=== PATIENT | male | born 1990 | race African-American/Black ===

== ENCOUNTER 2022-04-03 06:48 | Day surgery (SDC) | payer BC ==
[2022-03-29 10:30] VITALS: BP 125/73
[2022-03-29 11:05] LABS: BASOPHILS % (AUTO) 0.2 % (0.0-5.0); EOSINOPHILS % (AUTO) 1.8 % (0.0-8.0); HEMATOCRIT 46.9 % (42-54); MEAN CORPUSCULAR HEMOGLOBIN 32.9 pg (27.0-33.0); MEAN CORPUSCULAR HGB CONC 35.4 g/dL (32.0-36.0); MEAN CORPUSCULAR VOLUME 92.9 fL (79-99); MONOCYTES % (AUTO) 6.3 % (3.0-13.0); NEUTROPHILS % (AUTO) 60.4 % (40.0-77.0); PLATELET COUNT (AUTO) 254 K/uL (130-400); RED BLOOD CELL COUNT(AUTO) 5.05 MIL/uL (4.50-6.20); WHITE BLOOD COUNT (AUTO) 6.1 K/uL (4.8-10.8)
[2022-03-29 11:11] LABS: APPEARANCE,URINE CLEAR (CLEAR); BILIRUBIN,URINE NEGATIVE (NEGATIVE); COLOR,URINE LIGHT-YELLOW (YELLOW); GLUCOSE, URINE (UA) NEGATIVE (NEGATIVE); KETONES,URINE NEGATIVE (NEGATIVE); LEUKOCYTE ESTERASE ,URINE NEGATIVE Leu/uL (NEGATIVE); NITRATE,URINE NEGATIVE (NEGATIVE); OCCULT BLOOD,URINE NEGATIVE (NEGATIVE); PH,URINE 5.5 (5.0-8.0); PROTEIN,URINE NEGATIVE (NEGATIVE); UROBILINOGEN,URINE 0.2 mg/dL (0.2-1.0)
[2022-03-29 11:17] LABS: CREATININE 1.2 mg/dL (0.5-1.5); POTASSIUM 3.9 mmol/L (3.5-5.1); TOTAL PROTEIN, SERUM 7.6 g/dL (6.0-8.3)
[~2022-04-03] VITALS: Ht 172.7 cm; Wt 89.3 kg
[2022-04-03] VITALS (12 sets, daily range): BP systolic 94–142; BP diastolic 49–82
[~2022-04-03 06:48] MED LIST: HYDR25TA PO; LOSA50TA64 PO
[2022-04-03] MEDS: CEFAZOLIN SODIUM 1 GM VIAL IVP SCH ×2 (07:30→10:05)
[2022-04-03] MEDS ORDERED: LACTATED RINGERS 1000ML 1,000 ML IV ONE (07:38)
[2022-04-03] MEDS ORDERED: LIDOCAINE PF 100MG/5ML (2%) SYRINGE 5ML ONE (09:43)
[2022-04-03] MEDS ORDERED: ONDANSETRON 4MG INJ ONE (09:43)
[2022-04-03] MEDS ORDERED: FENTANYL CITRATE PF 50 MCG/1 ML 5ML AMP IV ONE (09:43)
[2022-04-03] MEDS ORDERED: ROCURONIUM 10MG/1ML SYR 10 MG/ML ML ONE (09:43)
[2022-04-03] MEDS ORDERED: PROPOFOL 10 MG/ML 20ML VIAL IV ONE ×2 (09:43→09:54)
[2022-04-03] MEDS ORDERED: MIDAZOLAM HCL 1 MG/ML 2ML VIAL ONE (09:50)
[2022-04-03] MEDS ORDERED: BUPIVACAINE/PF 0.25% 30ML VIAL IJ ONE (10:02)
[2022-04-03] MEDS ORDERED: KETOROLAC 30MG VIAL (30MG/ML) ONE (10:46)
== END 2022-04-03 12:00 | disposition home or self-care (01) ==
LOC: DAH 06:48
PROVIDERS: ATTEND Student in an Organized Health Care Education/Training Program
DX: N62 Hypertrophy of breast (principal); I10 Essential (primary) hypertension; Z98.890 Other specified postprocedural states; Z79.899 Other long term (current) drug therapy
CPT/HCPCS: 80053; 85025; 87426; 81003; 36415; 19120; J7120; J3010; J0690; J3490; J2001; J2250; J2704 ×2; J2405; J1885; G0168; A4930; A4215; A4223; A4222; A4221; A4663; A4600